=== PATIENT | male | born 1970 | race Caucasian/White ===

== ENCOUNTER 2016-10-22 14:25 | Emergency (ER) | payer OTHER ==
[2016-06-29 12:18] VITALS: BMI 18.9
[~2016-10-22 14:25] MED LIST: AMBIEN10 MG PO; HYDROCODONE-APA1 TAB PO; OXYCODONE HCL E20 MG PO; PHENERGAN25 M1 PO; TESTOSTERON200 MG/ML IM
== END 2016-10-22 17:08 | disposition left against medical advice (07) ==
LOC: D.ER 14:25
DX: R05 Cough (principal)

== ENCOUNTER 2016-11-16 10:43 | Emergency (ER) | payer OTHER ==
[2016-06-29 12:18] VITALS: BMI 18.9
== END 2016-11-16 13:30 | disposition home or self-care (01) ==
LOC: D.ER 10:43
DX: M54.2 Cervicalgia (principal); M54.12 Radiculopathy, cervical region; F17.200 Nicotine dependence, unspecified, uncomplicated